=== PATIENT | male | born 2000 | race African-American/Black ===

== ENCOUNTER 2025-03-10 12:53 | Emergency (ER) | payer SELFPAY ==
[~2025-03-10] VITALS: Ht 177.8 cm; Wt 77.0 kg
[2025-03-10 12:56] VITALS: BP 153/66; PULSE 105; RESP 18; TEMP 36.6; O2SAT 96
[2025-03-10] MEDS ORDERED: LORAZEPAM 2MG/ML UD SYRINGE IM NR (14:00)
[2025-03-10] MEDS ORDERED: HALOPERIDOL LACTATE 5MG/ML VIAL IM ONE (14:15)
[2025-03-10] MEDS ORDERED: DIPHENHYDRAMINE 50MG/ML VIAL IM PRN (14:15)
== END 2025-03-10 14:15 | disposition left against medical advice (07) ==
LOC: ER 12:53
DX: F29 Unspecified psychosis not due to a substance or known physiological condition (principal); F11.10 Opioid abuse, uncomplicated; Z88.5 Allergy status to narcotic agent
CPT/HCPCS: 99283; J2060